=== PATIENT | female | born 1940 | race Caucasian/White ===

== ENCOUNTER 2016-12-24 07:37 | Inpatient (IN) | payer OTHER ==
[~2016-12-24] VITALS: Ht 175.3 cm; Wt 70.3 kg
[~2016-12-24 07:37] MED LIST: ASCO500T8 PO; CALC-866 PO; DIVA250T4 PO; GABA-532 PO; LEVO500T15 PO; LITH300C4 PO; LORA10TA7 PO; METO50TA3 PO; MULT1CAP34 PO; RISE35TA PO; SORB30SO2 PO; TRAZ-147 PO; VENL150C2 PO
[2016-12-24] MEDS ORDERED: MORPHINE SULFATE INJ 2 MG/ML DISP.SYRIN ONE (07:47)
[2016-12-24] MEDS ORDERED: IV NS 0.9% 500 ML IV ONE (07:55)
[2016-12-24] MEDS ORDERED: IV SET PRIMARY PUMP SET 1 EA INFUS.SET MC ONE (07:55)
[2016-12-24] MEDS ORDERED: IV NS 0.9% 500 ML BAG IV ONE (08:00)
[2016-12-24] MEDS ORDERED: MORPHINE SULFATE INJ 2 MG/ML DISP.SYRIN IV ONE (08:00)
[2016-12-24] MEDS ORDERED: IPRATROPIUM NEB FS 0.5 MG/2.5 ML AMPUL.NEB ONE (08:01)
[2016-12-24] MEDS ORDERED: ALBUTEROL FS 2.5 MG/3 ML VIAL.NEB ONE (08:01)
[2016-12-24 08:10] VITALS: BP 121/79
[2016-12-24 08:25] LABS: BASOPHILS % (AUTO) 0.6 % (0.0-2.0); DIFF TOTAL % 100 %; EOSINOPHILS # (AUTO) 0.1 /CMM (0.0-0.7); HEMATOCRIT 33 % (33-45); HEMOGLOBIN 10.9 g/dL (11.5-14.8); LYMPHOCYTES # (AUTO) 1.4 /CMM (0.8-4.8); LYMPHOCYTES % (AUTO) 21.2 % (20.0-44.0); MEAN CORPUSCULAR HEMOGLOBIN 32 PG (26.0-33.0); MEAN CORPUSCULAR HGB CONC 33 g/dl (31.0-36.0); MEAN CORPUSCULAR VOLUME 95 fL (82-100); MONOCYTES # (AUTO) 0.4 /CMM (0.1-1.30); MONOCYTES % (AUTO) 6.6 % (2.0-12.0); NEUTROPHILS # (AUTO) 4.5 /CMM (1.8-8.9); NEUTROPHILS % (AUTO) 69.6 % (43.0-81.0); PLATELET COUNT (AUTO) 268 /CMM (150-450); RED BLOOD CELL COUNT(AUTO) 3.47 MIL/uL (4.0-5.2); WHITE BLOOD COUNT (AUTO) 6.4 K/uL (4.3-11.0)
[2016-12-24] MEDS ORDERED: ONDANSETRON HCL/PF - ER 4 MG/2 ML VIAL IV ONE (08:30)
[2016-12-24] MEDS ORDERED: ALBUTEROL FS 2.5 MG/3 ML VIAL.NEB NEB ONE (08:30)
[2016-12-24] MEDS ORDERED: IPRATROPIUM NEB FS 0.5 MG/2.5 ML AMPUL.NEB NEB ONE (08:30)
[2016-12-24 08:32] VITALS: BP 96/48
[2016-12-24] MEDS ORDERED: ONDANSETRON HCL/PF 4 MG/2 ML VIAL ONE (08:33)
[2016-12-24 08:36] LABS: ALBUMIN 2.5 g/dL (3.4-5.0); BILIRUBIN,DIRECT 0.1 mg/dL (0.0-0.2); BILIRUBIN,TOTAL 0.2 mg/dL (0.2-1.0); CALCIUM, SERUM 8.3 mg/dL (8.5-10.1); CREATININE 1.6 mg/dL (0.6-1.3); INDIRECT BILIRUBIN 0.1 mg/dL (0.0-1.1); TOTAL PROTEIN, SERUM 7.3 g/dL (6.4-8.2)
[2016-12-24 08:37] LABS: POTASSIUM 6.3 mmol/L (3.5-5.1)
[2016-12-24] MEDS ORDERED: SODIUM BICARBONATE SYR 50 MEQ/50 ML DISP.SYRIN ONE (08:57)
[2016-12-24] MEDS ORDERED: SODIUM BICARBONATE SYR 50 MEQ/50 ML DISP.SYRIN IV ONE (09:00)
[2016-12-24] MEDS ORDERED: SODIUM POLYSTYRENE SULFONATE 15 G/60 ML BOTTLE PO ONE (09:00)
[2016-12-24] MEDS ORDERED: OLAN2.5T3 PO (09:16)
[2016-12-24] MEDS ORDERED: SENN8.6T6 PO (09:16)
[2016-12-24] MEDS ORDERED: POLY17PO4 PO (09:16)
[2016-12-24] MEDS ORDERED: ARIP5TAB4 PO (09:16)
[2016-12-24] MEDS ORDERED: TEMA15CA PO (09:16)
[2016-12-24] MEDS ORDERED: VENL75CA56 PO (09:16)
[2016-12-24] MEDS ORDERED: LORA-258 PO (09:16)
[2016-12-24 09:46] LABS: LACTIC ACID 3.5 mmol/L (0.4-2.0)
[2016-12-24 10:09] LABS: *LACTIC ACID REFLEX FLAG YES
[2016-12-24] MEDS ORDERED: ZOLPIDEM TARTRATE 5 MG TABLET PO PRN (10:30)
[2016-12-24] MEDS ORDERED: ATROPINE SULFATE OPHTH SOLN 15 ML BOTTLE SL PRN (10:30)
[2016-12-24] MEDS ORDERED: HYDROCODONE/APAP 5/325MG 1 EACH TABLET PO PRN (10:30)
[2016-12-24] MEDS ORDERED: ACETAMINOPHEN 325 MG TABLET PO PRN (10:30)
[2016-12-24] MEDS ORDERED: MORPHINE SULFATE INJ 2 MG/ML DISP.SYRIN SQ PRN (10:30)
[2016-12-24] MEDS ORDERED: ONDANSETRON HCL/PF 4 MG/2 ML VIAL IVP PRN (10:30)
[2016-12-24] MEDS ORDERED: LORAZEPAM INJ 2 MG/ML VIAL IV PRN ×2 (10:30→15:00)
[2016-12-24] MEDS ORDERED: ACETAMINOPHEN 650 MG/SUPP.RECT RC PRN (11:00)
[2016-12-24] MEDS ORDERED: MORPHINE SULFATE PF DRIP 250 MG in IV D5W 240 ML IV PRN (13:30)
[2016-12-24] MEDS ORDERED: SET PCA INFUSE SET 1 EA INFUS.SET MC ONE (14:19)
[2016-12-24] MEDS ORDERED: IV NS 0.9% 250 ML IV ONE (14:29)
[2016-12-25] MEDS ORDERED: PANTOPRAZOLE 40 MG TABLET.DR PO SCH (07:30)
== END 2016-12-25 11:35 | disposition expired | DRG 177 ==
LOC: ER 07:39 → TELE1 09:44 → MEDSG1 10:32
PROVIDERS: ADMIT Internal Medicine; ATTEND Internal Medicine
DX: J69.0 Pneumonitis due to inhalation of food and vomit (principal); J96.00 Acute respiratory failure, unspecified whether with hypoxia or hypercapnia; N17.0 Acute kidney failure with tubular necrosis; E87.2 Acidosis; E46 Unspecified protein-calorie malnutrition; Z51.5 Encounter for palliative care; E87.6 Hypokalemia; F03.90 Unspecified dementia, unspecified severity, without behavioral disturbance, psychotic disturbance, mood disturbance, and anxiety; Z87.440 Personal history of urinary (tract) infections; K21.9 Gastro-esophageal reflux disease without esophagitis; I11.9 Hypertensive heart disease without heart failure; E87.5 Hyperkalemia; D64.9 Anemia, unspecified
CPT/HCPCS: 36415; 71010-TC; 80048-TC; 80076-TC; 83605-TC; 85025-TC; 87040-TC; 87186-TC; A4606; J2060; J2270; J2274; J2405; J3490; J7040; J7050; J7060; Z7610